=== PATIENT | female | born 1980 | race Hispanic/Latino ===

== ENCOUNTER 2019-03-11 13:17 | Inpatient (IN) | payer MEDICAID ==
[~2019-03-11] VITALS: Ht 154.9 cm; Wt 53.5 kg
[2019-03-11 13:53] LABS: APPEARANCE,URINE TURBID (CLEAR); BILIRUBIN,URINE MODERATE (NEGATIVE); COLOR,URINE RED (YELLOW); GLUCOSE, URINE (UA) NEGATIVE (NEGATIVE); KETONES,URINE 5 mg/dL (NEGATIVE); LEUKOCYTE ESTERASE ,URINE TRACE (NEGATIVE); NITRATE,URINE POSITIVE (NEGATIVE); OCCULT BLOOD,URINE LARGE (NEGATIVE); PH,URINE 5.5 (5.0-8.0); PROTEIN,URINE >=300 mg/dL (NEGATIVE)
[2019-03-11 13:59] LABS: HCG,QUAL RESULT NEGATIVE (NEGATIVE)
[2019-03-11 14:01] LABS: AMORPHOUS SEDIMENT,UR Many /LPF (None Seen); BACTERIA,URINE Moderate /HPF (None Seen); RBC,URINE TNTC /HPF (0-1); SQUAMOUS EPITHELIAL CELL,UR Rare /HPF (0-2)
[2019-03-11] MEDS ORDERED: SODIUM CHLORIDE 0.9% 1000ML 1,000 ML IV ONE ×2 (14:27→21:05)
[2019-03-11] MEDS ORDERED: ONDANSETRON HCL 4 MG/2 ML VIAL ONE ×2 (14:27→21:06)
[2019-03-11 14:50] LABS: BASOPHILS % (AUTO) 0.2 % (0.0-5.0); EOSINOPHILS % (AUTO) 0.1 % (0.0-8.0); HEMATOCRIT 33.6 % (36-48); LYMPHOCYTES % (AUTO) 5.4 % (21.0-51.0); MEAN CORPUSCULAR HEMOGLOBIN 28.8 pg (27.0-33.0); MEAN CORPUSCULAR HGB CONC 33.6 g/dL (32.0-36.0); MEAN CORPUSCULAR VOLUME 85.8 fL (79-99); MONOCYTES % (AUTO) 4.6 % (3.0-13.0); NEUTROPHILS % (AUTO) 89.7 % (40.0-77.0); NUCLEATED RED BLOOD CELLS 0.1 % (0.0-0.19); PLATELET COUNT (AUTO) 165 K/uL (130-400); RED BLOOD CELL COUNT(AUTO) 3.91 MIL/uL (4.00-5.50); RED CELL DISTRIBUTION WIDTH 18.1 % (11.0-15.5); WHITE BLOOD COUNT (AUTO) 7.1 K/uL (4.8-10.8)
[2019-03-11 15:09] LABS: ALBUMIN 3.8 g/dL (3.5-5.0); BILIRUBIN,TOTAL 0.4 mg/dL (0.2-1.0); TOTAL PROTEIN, SERUM 7.8 g/dL (6.0-8.3)
[2019-03-11 15:12] LABS: POTASSIUM 2.9 mmol/L (3.5-5.1)
[2019-03-11] MEDS ORDERED: POTASSIUM CHLORIDE 20 MEQ ERTAB PO ONE (15:15)
[2019-03-11] MEDS ORDERED: CEFTRIAXONE SODIUM 1 GM ONE (15:15)
[2019-03-11] MEDS ORDERED: SODIUM CHLORIDE 0.9% 50 ML IV ONE (15:16)
[2019-03-11 15:32] LABS: PLATELET MORPHOLOGY LARGE PLTS PRESENT
[2019-03-11] MEDS ORDERED: KETOROLAC TROMETHAMINE 15MG/ML ONE (16:10)
[2019-03-11 16:54] LABS: AMPHET/METH SCREEN,URINE NEGATIVE (NEGATIVE); BARBITURATE SCREEN, URINE NEGATIVE (NEGATIVE); BENZODIAZEPINES SCREEN,URINE NEGATIVE (NEGATIVE); CANNABINOID SCREEN,URINE POSITIVE (NEGATIVE); COCAINE SCREEN,URINE POSITIVE (NEGATIVE); OPIATE SCREEN,URINE NEGATIVE (NEGATIVE); PHENCYCLIDINE SCREEN,URINE NEGATIVE (NEGATIVE)
[2019-03-11] MEDS: SODIUM CHLORIDE 0.9% 1000ML 1,000 ML IV SCH (18:39)
[2019-03-11] MEDS: CEFTRIAXONE SODIUM 1 GM IVP SCH (18:45)
[2019-03-11] MEDS ORDERED: METRONIDAZOLE 500MG/100ML BAG 100 ML ONE (21:06)
[2019-03-11] MEDS: METRONIDAZOLE 500MG/100ML BAG 100 ML IV SCH (22:00)
[2019-03-11 22:05] VITALS: BP 101/54
[2019-03-11] MEDS: FAMOTIDINE/PF 20 MG/2 ML VIAL IV SCH (22:50)
[2019-03-11] MEDS: ONDANSETRON HCL 4 MG/2 ML VIAL IV PRN (23:39)
[2019-03-11] MEDS: MORPHINE SULFATE 2 MG/ML 1ML SYG IVP PRN (23:39)
[2019-03-12] MEDS: POTASSIUM CHLORIDE 10MEQ/100ML 100 ML IV PRN ×2 (00:18→02:41)
[2019-03-12] MEDS: LIDOCAINE HCL-MPF 1% 2ML VIAL IVP PRN ×2 (00:18→02:42)
[2019-03-12] MEDS: MAGNESIUM 2GM PREMIX 50ML 50 ML IV PRN (02:07)
[2019-03-12 04:00] VITALS: BP 110/64
[2019-03-12] MEDS: SODIUM CHLORIDE 0.9% 1000ML 1,000 ML IV SCH (04:35)
[2019-03-12] MEDS: METRONIDAZOLE 500MG/100ML BAG 100 ML IV SCH ×3 (05:06→21:19)
[2019-03-12 06:06] LABS: BASOPHILS % (AUTO) 0.3 % (0.0-5.0); EOSINOPHILS % (AUTO) 0.2 % (0.0-8.0); HEMATOCRIT 26.8 % (36-48); MEAN CORPUSCULAR HEMOGLOBIN 27.8 pg (27.0-33.0); MEAN CORPUSCULAR HGB CONC 32.6 g/dL (32.0-36.0); MEAN CORPUSCULAR VOLUME 85.2 fL (79-99); MONOCYTES % (AUTO) 11.5 % (3.0-13.0); PLATELET COUNT (AUTO) 153 K/uL (130-400); RED BLOOD CELL COUNT(AUTO) 3.15 MIL/uL (4.00-5.50); RED CELL DISTRIBUTION WIDTH 17.7 % (11.0-15.5); WHITE BLOOD COUNT (AUTO) 5.5 K/uL (4.8-10.8)
[2019-03-12 06:18] LABS: CREATININE 0.8 mg/dL (0.5-1.5); POTASSIUM 3.5 mmol/L (3.5-5.1)
[2019-03-12 07:25] VITALS: BP 98/55
--- NOTE | 2019-03-12 09:13 | NUR ---
DR. BERRY PAGED RE; CONSULT FOR GALLSTONES. PENDING CALL BACK.
[2019-03-12] MEDS: FAMOTIDINE/PF 20 MG/2 ML VIAL IV SCH ×2 (11:08→20:53)
[2019-03-12] MEDS: ENOXAPARIN SODIUM 30 MG/0.3 ML SQ SCH (11:35)
--- NOTE | 2019-03-12 12:09 | NUR ---
NAUSEATED AND VOMITING, WILL GIVE ANTIEMETIC MEDICATION.
[2019-03-12] MEDS: ONDANSETRON HCL 4 MG/2 ML VIAL IV PRN ×2 (12:15→18:32)
[2019-03-12 12:23] VITALS: BP 110/62
[2019-03-12] MEDS: MORPHINE SULFATE 2 MG/ML 1ML SYG IVP PRN ×3 (12:24→22:26)
--- NOTE | 2019-03-12 12:28 | NUR ---
PT COMPLAINING OF RT. SIDE ABD PAIN LEVEL OF 6 SCALE 1/10.
[2019-03-12 16:00] VITALS: BP 111/61
--- NOTE | 2019-03-12 16:22 | NUR ---
Dr. Lester albarado re; pt remains complaining of nausea, and abd pain of 10. may start a clear liquid diet.
[2019-03-12] MEDS: CEFTRIAXONE SODIUM 1 GM IVP SCH (18:34)
--- NOTE | 2019-03-12 19:00 | NUR ---
David COLLIER AWARE OF K-2.8. ORDERS ENTERED.
--- NOTE | 2019-03-12 19:35 | NUR ---
cm note met with patient and states resides at home with daughter, independent and active at home. no dc needs. dcplan is back to same home setting at time of dc. Addendum: 03/12/19 at 1936 by IZAIAH PHELPS CM Amended: Links added.
[2019-03-12 20:00] VITALS: BP 119/72
[2019-03-12] MEDS: NS-20 MEQ KCL 1000ML 1,000 ML IV SCH (20:53)
[2019-03-12 23:45] VITALS: BP 120/58
[2019-03-13 04:00] VITALS: BP 103/67
[2019-03-13] MEDS: NS-20 MEQ KCL 1000ML 1,000 ML IV SCH ×3 (05:07→20:45)
[2019-03-13] MEDS: METRONIDAZOLE 500MG/100ML BAG 100 ML IV SCH ×3 (05:08→22:45)
[2019-03-13 05:53] LABS: CREATININE 0.7 mg/dL (0.5-1.5); POTASSIUM 3.1 mmol/L (3.5-5.1)
[2019-03-13 08:00] VITALS: BP 98/62
[2019-03-13] MEDS: ONDANSETRON HCL 4 MG/2 ML VIAL IV PRN ×2 (09:07→23:24)
[2019-03-13] MEDS: FAMOTIDINE/PF 20 MG/2 ML VIAL IV SCH ×2 (09:07→20:45)
[2019-03-13] MEDS: ENOXAPARIN SODIUM 30 MG/0.3 ML SQ SCH (09:07)
[2019-03-13] MEDS: MORPHINE SULFATE 2 MG/ML 1ML SYG IVP PRN (09:08)
[2019-03-13] MEDS ORDERED: TRAMADOL /APAP 37.5MG/325MG TAB PO PRN (10:15)
[2019-03-13] MEDS ORDERED: HYDROCODONE/ACETAMINOPHEN 5/325 MG TAB PO PRN (10:15)
[2019-03-13] MEDS: POTASSIUM CHLORIDE 40 MEQ in SODIUM CHLORIDE 0.9% 1000ML 1,000 ML IV SCH ×2 (10:30→22:45)
[2019-03-13] MEDS ORDERED: PHARMACY COMMUNICATION MISC SCH (10:30)
[2019-03-13 12:00] VITALS: BP 112/59
[2019-03-13] MEDS: ACETAMINOPHEN 325 MG TAB PO PRN (12:09)
[2019-03-13] MEDS: LEVOFLOXACIN 500 MG/D5W 100 ML 100 ML IV SCH ×2 (13:00→18:00)
[2019-03-13 16:00] VITALS: BP 118/81
[2019-03-13] MEDS: LACTOBACILLUS RHAMNOSUS GG 1 EACH CAP.SPRINK PO SCH ×2 (18:01→20:45)
[2019-03-13 20:00] VITALS: BP 119/74
[2019-03-14] VITALS: BP 119/76
[2019-03-14 04:00] VITALS: BP 111/72
[2019-03-14] MEDS: METRONIDAZOLE 500MG/100ML BAG 100 ML IV SCH ×2 (05:10→15:08)
[2019-03-14 05:19] LABS: HEMATOCRIT 24.5 % (36-48); MEAN CORPUSCULAR HEMOGLOBIN 27.2 pg (27.0-33.0); MEAN CORPUSCULAR HGB CONC 32.3 g/dL (32.0-36.0); MEAN CORPUSCULAR VOLUME 84.3 fL (79-99); PLATELET COUNT (AUTO) 167 K/uL (130-400); RED BLOOD CELL COUNT(AUTO) 2.91 MIL/uL (4.00-5.50); RED CELL DISTRIBUTION WIDTH 17.4 % (11.0-15.5); WHITE BLOOD COUNT (AUTO) 3.4 K/uL (4.8-10.8)
[2019-03-14 05:26] LABS: CREATININE 0.6 mg/dL (0.5-1.5); POTASSIUM 3.1 mmol/L (3.5-5.1)
[2019-03-14] MEDS ORDERED: POTASSIUM CHLORIDE 20 MEQ ERTAB PO SCH (07:00)
[2019-03-14] MEDS ORDERED: EPOETIN ALFA 10,000 UNIT/ML VIAL SQ SCH (07:00)
[2019-03-14] MEDS ORDERED: KETOROLAC TROMETHAMINE 30MG/ML IV PRN (07:15)
[2019-03-14] MEDS ORDERED: COMPOUND IV MISC 1 EACH IVSOLN MISC PRN (07:15)
[2019-03-14 08:00] VITALS: BP 115/66
[2019-03-14] MEDS ORDERED: IRON SUCROSE COMPLEX 100 MG in SODIUM CHLORIDE 0.9% 50 ML IV SCH (09:00)
[2019-03-14] MEDS: FAMOTIDINE/PF 20 MG/2 ML VIAL IV SCH (09:58)
[2019-03-14] MEDS: LACTOBACILLUS RHAMNOSUS GG 1 EACH CAP.SPRINK PO SCH ×2 (09:58→15:08)
[2019-03-14 12:00] VITALS: BP 124/71
[2019-03-14] MEDS: ONDANSETRON HCL 4 MG/2 ML VIAL IV PRN (12:36)
[2019-03-14] MEDS: MAGNESIUM 2GM PREMIX 50ML 50 ML IV PRN (12:37)
[2019-03-14] MEDS: POTASSIUM CHLORIDE 40 MEQ in SODIUM CHLORIDE 0.9% 1000ML 1,000 ML IV SCH (13:17)
[2019-03-14] MEDS ORDERED: POTASSIUM CHLORIDE 20 MEQ ERTAB PO ONE (15:04)
[2019-03-14] MEDS: ACETAMINOPHEN 325 MG TAB PO PRN (15:20)
[2019-03-14 16:00] VITALS: BP 117/67
== END 2019-03-14 19:54 | disposition home or self-care (01) | DRG 249 ==
LOC: EDH 13:17 → EDHIP 18:58 → OBSVTOIN 18:58 → 4CH 21:57
PROVIDERS: ADMIT Internal Medicine; ATTEND Internal Medicine
DX: K52.9 Noninfective gastroenteritis and colitis, unspecified (principal); E83.42 Hypomagnesemia; K76.0 Fatty (change of) liver, not elsewhere classified; K80.20 Calculus of gallbladder without cholecystitis without obstruction; N39.0 Urinary tract infection, site not specified; E87.6 Hypokalemia; F43.10 Post-traumatic stress disorder, unspecified; F32.9 Major depressive disorder, single episode, unspecified; F41.9 Anxiety disorder, unspecified; D50.0 Iron deficiency anemia secondary to blood loss (chronic)
CPT/HCPCS: 36415; 74176; 76700; 80048; 80053; 80305; 81001; 81025; 83690; 83735; 84132; 84702; 85025; 85027; 87088; 87493; 93005; G0378; J0696; J0885; J1650; J1756; J1885; J1956; J2405; J3475; J3480; J3490; J7030